=== PATIENT | female | born 1995 | race Hispanic/Latino ===

== ENCOUNTER 2023-10-12 11:16 | Day surgery (SDC) | payer BC ==
[2023-10-11 13:59] VITALS: BP 120/81; PULSE 85; RESP 19
[2023-10-12] VITALS (14 sets, daily range): BP systolic 103–143; BP diastolic 63–79; PULSE 60–86; RESP 14–19
[~2023-10-12] VITALS: Ht 154.9 cm; Wt 67.2 kg
[~2023-10-12 11:16] MED LIST: ACET-2079 PO; IBUP-2077 PO; MEDR150D7 IM
[2023-10-12] MEDS ORDERED: LACTATED RINGERS 1000ML 1,000 ML IV ONE (11:55)
[2023-10-12] MEDS ORDERED: CEFAZOLIN SODIUM 1 GM VIAL IVPB PRN (13:00)
[2023-10-12] MEDS ORDERED: MIDAZOLAM HCL 1 MG/ML 2ML VIAL ONE (13:13)
[2023-10-12] MEDS ORDERED: FENTANYL CITRATE PF 50 MCG/1 ML 2ML VIAL ONE (13:13)
[2023-10-12] MEDS ORDERED: PROPOFOL 10 MG/ML 20ML VIAL IV ONE ×2 (13:13→13:28)
[2023-10-12] MEDS: CEFAZOLIN SODIUM 1 GM VIAL ONE (13:15)
[2023-10-12] MEDS: LIDOCAINE HCL 1% 20 ML VIAL ONE (13:22)
[2023-10-12] MEDS: BUPIVACAINE/PF 0.5% 30ML VIAL ONE (13:22)
== END 2023-10-12 15:35 | disposition home or self-care (01) ==
LOC: DAH 11:16
PROVIDERS: ATTEND Podiatrist
DX: M67.472 Ganglion, left ankle and foot (principal); E66.9 Obesity, unspecified
CPT/HCPCS: 81025; 28090; 88304; A6260; A4663; J7120; J3010; J0690; J2250; J2704 ×2; J0665; A6446; A4649; A4215 ×2; A4223; A4213; A4222; A4221; J3490